=== PATIENT | male | born 1980 | race African-American/Black ===

== ENCOUNTER → 2016-09-23 | Emergency (ER) | payer OTHER ==
[~2016-09-23] VITALS: Ht 182.9 cm; Wt 150.0 kg
[2016-09-23 12:29] VITALS: BP 144/93
== END ==
LOC: ER 12:08
DX: R00.2 Palpitations (principal)
CPT/HCPCS: 99284; Z7610

== ENCOUNTER 2017-07-22 05:41 | Emergency (ER) | payer OTHER ==
[~2017-07-22] VITALS: Ht 190.5 cm; Wt 150.0 kg
[2017-07-22] MEDS ORDERED: IBUPROFEN 800MG TABLET PO ONE (08:00)
[2017-07-22 10:27] LABS: BASOPHILS % 0.4 % (0.0-2.0); EOSINOPHILS % 0.7 % (0.0-5.0); HEMATOCRIT. 42.4 % (42.0-52.0); HEMOGLOBIN. 14.1 g/dL (14.0-18.0); LYMPHOCYTES % 32.1 % (20.0-50.0); MEAN CORPUSCULAR VOLUME 86.9 fL (80.0-94.0); MEAN PLATELET VOLUME 7.3 fl (7.4-10.4); MONOCYTES % 7.4 % (2.0-8.0); NEUTROPHILS % 59.4 % (40.0-76.0); PLATELET 350 x1000/uL (130-400); RED BLOOD CELL COUNT 4.88 mill/uL (4.7-6.1); RED CELL DISTRIBUTION WIDTH 12.8 % (11.6-14.6)
[2017-07-22 10:30] LABS: CHLORIDE 108 mEq/L (98-107)
[2017-07-22 11:47] VITALS: BP 136/82
== END 2017-07-22 11:53 | disposition home or self-care (01) ==
LOC: ER 09:01
DX: M25.571 Pain in right ankle and joints of right foot (principal); M25.471 Effusion, right ankle
CPT/HCPCS: 36415; 73610; 80048; 84550; 85025; 99285

== ENCOUNTER 2022-02-02 07:37 | Emergency (ER) | payer OTHER ==
[~2022-02-02] VITALS: Ht 190.5 cm; Wt 137.0 kg
[2022-02-02 07:50] VITALS: BP 142/70
[2022-02-02] MEDS ORDERED: ACETAMINOPHEN 325MG TABLET PO ONE (08:30)
[2022-02-02] MEDS ORDERED: METHOCARBAMOL 500MG TABLET PO ONE (08:30)
[2022-02-02] MEDS ORDERED: METH-653 MT (09:32)
[2022-02-02] MEDS ORDERED: IBUP-2029 MT (09:32)
== END 2022-02-02 10:02 | disposition home or self-care (01) ==
LOC: ER 07:37
DX: M54.9 Dorsalgia, unspecified (principal); I10 Essential (primary) hypertension; Z98.890 Other specified postprocedural states
CPT/HCPCS: 99283